=== PATIENT | male | born 1985 | race Caucasian/White ===

== ENCOUNTER 2016-09-11 12:54 | Emergency (ER) | payer OTHER ==
[2016-09-11] MEDS ORDERED: Metoclopramide 10 MG/2 ML SDV IVPUSH ONE (13:28)
[2016-09-11] MEDS ORDERED: HYDROmorphone 1 MG/ML Syringe IVPUSH ONE (13:28)
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
[2016-09-11] MEDS ORDERED: Sodium Chloride 0.9% 1,000 ML IV SCH (13:30)
[2016-09-11] MEDS ORDERED: Iopamidol 612 MG/ML 150 ML Bottle IVPUSH ONE (13:31)
[2016-09-11] MEDS: Sodium Chloride 0.9% 10 ML Syringe FLUSH PRN ×2 (13:40→13:46)
[2016-09-11 14:37] VITALS: BP 138/74
--- NOTE | 2016-09-11 14:58 | CT ---
CT abdomen and pelvis Technique: Multiple axial sections were obtained from above the dome of the diaphragm inferiorly through a large portion of the femurs. Reconstructed sagittal and coronal images were obtained. Intravenous contrast was utilized. No oral contrast has been given. Findings: Visualized lung bases shows nothing acute. Liver shows mild fatty infiltration. No focal abnormality is identified within the liver. Spleen appears within normal limits. Adrenal glands show no nodule. Kidneys show symmetric contrast enhancement without hydronephrosis. Small cortical cyst is noted within the upper left kidney measuring approximately 1.5 cm. Kidneys are otherwise unremarkable. Aorta shows no aneurysmal dilatation. No retroperitoneal adenopathy or mesenteric abnormalities are seen. Pancreas is within normal limits. No pelvic mass or adenopathy is seen. Bone window settings were reviewed which shows previous surgery within the lower thoracic spine as well as within L1. Mild anterior wedge deformities are noted at T12 and L1 which appear old. No fracture is identified within the femurs or within either hip. No pelvic fracture is seen. Impression: 1. Previous surgery within the lower thoracic spine and within L1. Old anterior wedge deformities within T12 and L1 are seen. 2. Incidental fatty infiltration within the liver. 3. Other incidental findings. Nothing acute is seen on CT study of the abdomen and pelvis. No bony fracture is seen within the pelvis, hips or within the visualized femurs. Diagnostic code #2
== END 2016-09-11 14:35 | disposition home or self-care (01) ==
LOC: JD.ED 12:54
DX: S70.11XA Contusion of right thigh, initial encounter (principal); Z79.899 Other long term (current) drug therapy; Y29.XXXA Contact with blunt object, undetermined intent, initial encounter; Y92.009 Unspecified place in unspecified non-institutional (private) residence as the place of occurrence of the external cause
CPT/HCPCS: 36415; 74177; 80053; 82150; 85025; 96361; 96374; 96375; 99284; 99285; J1170; J2765; J7040; J7050; Q9967